=== PATIENT | female | born 1955 | race American Indian/Alaskan Native ===

== ENCOUNTER 2018-07-13 00:16 | Inpatient (IN) | payer MEDICARE ==
[2018-07-13] MEDS ORDERED: NITROSTAT SL PRN (01:07)
[2018-07-13 01:34] LABS: Basophils % (Auto) 0.6 % (0.0-1.8); Eosinophils # (Auto) 0.1 K/mm3 (0.0-0.4); Eosinophils % (Auto) 2.8 % (0.0-4.3); Hematocrit 38.3 % (30.3-42.9); Lymphocytes # (Auto) 1.1 K/mm3 (1.2-5.4); Lymphocytes % (Auto) 22.8 % (13.4-35.0); Mean Corpuscular HGB Conc 31 % (30-34); Mean Corpuscular Volume 80 fl (79-97); Monocytes # (Auto) 0.4 K/mm3 (0.0-0.8); Monocytes % (Auto) 9.3 % (0.0-7.3); Platelet Count 209 K/mm3 (140-440); Red Blood Count 4.76 M/mm3 (3.65-5.03); Red Cell Distribution Width 15.8 % (13.2-15.2)
[2018-07-13 01:47] LABS: BUN/Creatinine Ratio 24; Blood Urea Nitrogen 17 mg/dL (7-17); Calcium 9.1 mg/dL (8.4-10.2); Hemolysis Index 14
--- NOTE | 2018-07-13 03:23 | Emergency Department Report ---
ED Chest Pain HPI - General Chief Complaint: Chest Pain Stated Complaint: CHEST PAIN Time Seen by Provider: 07/13/18 00:56 Source: EMS Mode of arrival: Stretcher Limitations: No Limitations - History of Present Illness Initial Comments: Patient is a 62-year-old [place] female who is presenting with chest heaviness. Patient states that around 11:30 last night she started getting pressure-like heavy sensation in the chest. She states this was some mild shortness of breath present. Patient denies any nausea vomiting or diaphoresis. Patient called 911 and was transported here. Patient was given nitroglycerin prior to arrival which is starting to help with her chest discomfort. The patient has a past history of cholecystectomy and the patient states that she has never seen a skewer up and has never had a stress test. Severity scale (0 -10): 3 - Related Data Home Medications Medication Instructions Recorded Confirmed Last Taken Losartan [Cozaar] 25 mg PO QDAY 07/13/18 07/13/18 07/12/18 amLODIPine [Norvasc] 10 mg PO DAILY 07/13/18 07/13/18 07/12/18 metFORMIN [Glucophage] 500 mg PO BID 07/13/18 07/13/18 07/12/18 Allergies Allergy/AdvReac Type Severity Reaction Status Date / Time aspirin Allergy Angioedema Verified 07/13/18 00:58 codeine Allergy Unknown Verified 07/13/18 00:58 morphine Allergy Unknown Verified 07/13/18 00:58 Heart Score - HEART Score History: Moderately suspicious EKG: Non-specific Age: 45-65 Risk factors: 1-2 risk factors Troponin: < normal limit HEART Score: 4 ED Review of Systems ROS: Stated complaint: CHEST PAIN Other details as noted in HPI Comment: All other systems reviewed and negative ED Past Medical Hx - Past Medical History Previous Medical History?: Yes Hx Hypertension: Yes Hx Diabetes: Yes - Surgical History Past Surgical History?: Yes Hx Cholecystectomy: Yes Hx Appendectomy: Yes Additional Surgical History: ovary cyst removal - Social History Smoking Status: Never Smoker Substance Use Type: None - Medications Home Medications: Home Medications Medication Instructions Recorded Confirmed Last Taken Type Losartan [Cozaar] 25 mg PO QDAY 07/13/18 07/13/18 07/12/18 History amLODIPine [Norvasc] 10 mg PO DAILY 07/13/18 07/13/18 07/12/18 History metFORMIN [Glucophage] 500 mg PO BID 07/13/18 07/13/18 07/12/18 History ED Physical Exam - General Limitations: No Limitations General appearance: alert, in no apparent distress - Head Head exam: Present: atraumatic, normocephalic - Eye Eye exam: Present: normal appearance - ENT ENT exam: Present: mucous membranes moist - Neck Neck exam: Present: normal inspection - Respiratory Respiratory exam: Present: normal lung sounds bilaterally. Absent: respiratory distress, wheezes, rales, rhonchi - Cardiovascular Cardiovascular Exam: Present: regular rate, normal rhythm. Absent: systolic murmur, diastolic murmur, rubs, gallop - GI/Abdominal GI/Abdominal exam: Present: soft, normal bowel sounds. Absent: distended, tenderness, guarding - Extremities Exam Extremities exam: Present: normal inspection - Back Exam Back exam: Present: normal inspection - Neurological Exam Neurological exam: Present: alert, oriented X3 - Psychiatric Psychiatric exam: Present: normal affect, normal mood - Skin Skin exam: Present: warm, dry, intact, normal color. Absent: rash ED Course Vital Signs 07/13/18 07/13/18 07/13/18 00:49 00:52 01:00 Temperature 98.4 F Pulse Rate 70 67 Respiratory 16 13 Rate Blood Pressure 142/74 142/74 O2 Sat by Pulse 99 100 99 Oximetry 07/13/18 02:00 Temperature Pulse Rate 81 Respiratory 15 Rate Blood Pressure 161/88 O2 Sat by Pulse 98 Oximetry ED Medical Decision Making - Lab Data Result diagrams: 07/13/18 01:10 07/13/18 01:10 Lab Results 07/13/18 07/13/18 Range/Units 01:10 01:10 WBC 4.7 (4.5-11.0) K/mm3 RBC 4.76 (3.65-5.03) M/mm3 Hgb 12.0 (10.1-14.3) gm/dl Hct 38.3 (30.3-42.9) % MCV 80 (79-97) fl MCH 25 L (28-32) pg MCHC 31 (30-34) % RDW 15.8 H (13.2-15.2) % Plt Count 209 (140-440) K/mm3 Lymph % (Auto) 22.8 (13.4-35.0) % [place] % (Auto) 9.3 H (0.0-7.3) % Eos % (Auto) 2.8 (0.0-4.3) % Baso % (Auto) 0.6 (0.0-1.8) % Lymph # 1.1 L (1.2-5.4) K/mm3 [place] # 0.4 (0.0-0.8) K/mm3 Eos # 0.1 (0.0-0.4) K/mm3 Baso # 0.0 (0.0-0.1) K/mm3 Seg Neutrophils % 64.5 (40.0-70.0) % Seg Neutrophils # 3.0 (1.8-7.7) K/mm3 Sodium 140 (137-145) mmol/L Potassium 4.2 (3.6-5.0) mmol/L Chloride 102.9 (98-107) mmol/L Carbon Dioxide 24 (22-30) mmol/L Anion Gap 17 mmol/L BUN 17 (7-17) mg/dL Creatinine 0.7 (0.7-1.2) mg/dL Estimated GFR > 60 ml/min BUN/Creatinine Ratio 24 % Glucose 101 H (65-100) mg/dL Calcium 9.1 (8.4-10.2) mg/dL Troponin T < 0.010 (0.00-0.029) ng/mL - EKG Data -: EKG Interpreted by Al - EKG Data 07/13/18 03:22 EKG shows sinus rhythm rate of 79. There is a normal axis normal intervals. There is no ST segment elevation or depressions. Time of interpretation is 00 44 - Radiology Data Chest x-ray shows no acute process - Medical Decision Making Patient with elevated heart score and the patient will be admitted to the hosp italist service for cardiac workup Critical Care Time: Yes (30) Critical care attestation.: If time is entered above; I have spent that time in minutes in the direct care of this critically ill patient, excluding procedure time. ED Disposition Clinical Impression: Chest pain Qualifiers: Chest pain type: unspecified Qualified Code(s): R07.9 - Chest pain, unspecified Disposition: TO HOME OR SELFCARE Is pt being admited?: Yes Does the pt Need Aspirin: No Condition: Stable Instructions: Chest Pain (ED) Referrals: PRIMARY CARE, [Primary Care Provider] - 3-5 Days Time of Disposition: 03:23
--- NOTE | 2018-07-13 03:27 | XRay Report ---
FINAL REPORT EXAM: XR CHEST ROUTINE 2V HISTORY: chest pain TECHNIQUE: 2 views of the chest. PRIORS: None. FINDINGS: The cardiomediastinal silhouette appears normal. The lungs are clear. The bones and soft tissues are unremarkable. IMPRESSION: No evidence of acute cardiopulmonary disease
[2018-07-13] MEDS ORDERED: ZOFRAN IV PRN (03:50)
[2018-07-13] MEDS ORDERED: REGLAN IV PRN (03:50)
[2018-07-13] MEDS ORDERED: D50W (25GM) Syringe IV PRN ×2 (03:50→04:21)
[2018-07-13] MEDS ORDERED: TYLENOL PO PRN (03:50)
[2018-07-13] MEDS ORDERED: SODIUM CHLORIDE FLUSH SYRINGE 10 ML IV PRN (03:50)
[2018-07-13] MEDS ORDERED: NACL 0.45% 1000 ML 1,000 ML IV SCH (04:00)
[2018-07-13] MEDS ORDERED: APRESOLINE IV PRN (04:20)
--- NOTE | 2018-07-13 04:20 | History and Physical Report ---
History of Present Illness Date of examination: 07/13/18 History of present illness: 62 -year-old lady with a history of hypertension, diabetes, vertigo course emergency room with complaints of chest pain. She recently traveled from the [facility] on July 05. Her pain is in the epigastric area which she described as a dull sensation, constant, no radiation, intensity 5/10, cannot identify exacerbating or relieving factors. Admits to shortness of breath, no nausea vomiting, diaphoresis or palpitation Review of systems Constitutional: no weight loss, chills, fever Ears, eyes, nose, mouth and throat: no nasal congestion, no nasal discharge, no sinus pressure, no vision change, no red eye. Neck: No neck pain or rigidity. Cardiovascular: no palpitations, chest pain Gastrointestinal: no hematochezia, abdominal pain Genitourinary : no frequency , no hematuria Musculoskeletal: no joint swelling or muscle ache Integumentary: no rash, no pruritis Neurological: no parathesias, no focal weakness Endocrine: no cold or heat intolerance, no polyuria or polydipsia Hematologic/Lymphatic: no easy bruising, no easy bleeding, no gland swelling Allergic/Immunologic: no urticaria, no angioedema. PAST MEDICAL HISTORY: hypertension, diabetes, vertigo PAST SURGICAL HISTORY: Cholecystectomy, appendicectomy, cyst removed from the ovary SOCIAL HISTORY: Denies alcohol, drugs, tobacco FAMILY HISTORY: Hypertension Medications and Allergies Allergies Allergy/AdvReac Type Severity Reaction Status Date / Time aspirin Allergy Angioedema Verified 07/13/18 00:58 codeine Allergy Unknown Verified 07/13/18 00:58 morphine Allergy Unknown Verified 07/13/18 00:58 Home Medications Medication Instructions Recorded Confirmed Last Taken Type Losartan [Cozaar] 25 mg PO QDAY 07/13/18 07/13/18 07/12/18 History amLODIPine [Norvasc] 10 mg PO DAILY 07/13/18 07/13/18 07/12/18 History metFORMIN [Glucophage] 500 mg PO BID 07/13/18 07/13/18 07/12/18 History Active Meds: Active Medications Acetaminophen (Tylenol) 650 mg PO Q4H PRN PRN Reason: Pain MILD(1-3)/Fever >100.5/ANNA Dextrose (D50w (25gm) Syringe) 50 ml IV PRN PRN PRN Reason: Hypoglycemia Enoxaparin Sodium (Lovenox) 40 mg SUB-Q QDAY@1000 CARMENZA Sodium Chloride (Nacl 0.45% 1000 Ml) 1,000 mls @ 75 mls/hr IV DIRECT CARMENZA Metoclopramide HCl (Reglan) 10 mg IV Q6H PRN PRN Reason: Nausea And Vomiting Nitroglycerin (Nitrostat) 0.4 mg SL .Q5MIN PRN PRN Reason: Chest Pain Ondansetron HCl (Zofran) 4 mg IV Q8H PRN PRN Reason: Nausea And Vomiting Sodium Chloride (Sodium Chloride Flush Syringe 10 Ml) 10 ml IV BID CARMENZA Sodium Chloride (Sodium Chloride Flush Syringe 10 Ml) 10 ml IV PRN PRN PRN Reason: LINE FLUSH Exam - Physical Exam Narrative exam: PGeneral Apperance: The patient lying in bed, breathing comfortable HEENT: Normocephalic, atraumatic. Pupils equally round and reactive to light, EOMI, no sclericterus or JVD or thyromegaly or nodule. , no carotid bruit, mucous membranes moist, no exudate or erythema Heart: S1-S2, regular is rhythm Lungs: Clear to auscultation bilaterally, breathing comfortable Abdomen: Positive bowel sounds, soft, nontender, nondistended, no organomegaly Extremities: No edema cyanosis clubbing Skin: sacral and lower extremity ulcers, no rash, nodule, warm and dry Neuro: cranial nerves 2-12 intact, speech is fluent, motor/sensory intact - Constitutional Vitals: Temp Pulse Resp BP Pulse Ox 98.4 F 81 15 161/88 98 07/13/18 00:52 07/13/18 02:00 07/13/18 02:00 07/13/18 02:00 07/13/18 02:00 Results - Labs CBC & Chem 7: 07/13/18 01:10 07/13/18 01:10 Labs: Abnormal lab results 07/13/18 07/13/18 Range/Units 01:10 01:10 MCH 25 L (28-32) pg RDW 15.8 H (13.2-15.2) % [place] % (Auto) 9.3 H (0.0-7.3) % Lymph # 1.1 L (1.2-5.4) K/mm3 Glucose 101 H (65-100) mg/dL - Imaging and Cardiology EKG: report reviewed Chest x-ray: report reviewed Assessment and Plan Assessment Chest pain, rule out pulmonary emboli, ACS Hypertension Diabetes Plan Admit to medicine Check cardiac enzymes, d-dimer, stress test Check fingersticks and initiate insulin sliding-scale IV morphine, aspirin, DVT prophylaxi D-dimer positive, obtain CT chest, Please follow results
[2018-07-13 04:40] LABS: Creatine Kinase MB 1.7 ng/mL (0.0-4.0)
--- NOTE | 2018-07-13 07:14 | Cat Scan Report ---
FINAL REPORT EXAM: CT ANGIO CHEST HISTORY: eval for PE TECHNIQUE: CT imaging obtained through the chest in pulmonary angiographic phase following intraveno us administration of contrast. Transaxial, Coronal and sagittal reformats with maximal intensity proj ections are provided. PRIORS: Chest radiographs of the same date FINDINGS: Normal caliber main pulmonary artery. Well opacified pulmonary arterial tree. No pulmonary embolism. No pericardial effusion. Coronary artery calcifications. Thoracic aorta is normal in course and caliber. No periaortic fluid or stranding. No pneumothorax, effusion or focal airspace disease. Posterior medial right lower lung atelectasis ov erlies prominent endplate osteophytes. A subpleural left lower lung solid-appearing nodule measures u p to 5 millimeters on axial series 2, image 47. The central airways are patent. No bronchiectasis. Imaged portion of the upper abdomen is unremarkable. The superficial soft tissues are unremarkable. No acute bony abnormality or worrisome osseous lesions identified. IMPRESSION: No pulmonary embolism or other acute finding. Left lower lung solid-appearing 5 millimeter subpleural nodule warrants additional CT chest evaluatio n in 1 year. Coronary artery calcifications.
[2018-07-13 08:04] LABS: Creatine Kinase MB 1.3 ng/mL (0.0-4.0)
[2018-07-13] MEDS: HumaLOG SUB-Q SCH ×2 (09:55→13:51)
[2018-07-13] MEDS ORDERED: SODIUM CHLORIDE FLUSH SYRINGE 10 ML IV SCH (10:00)
[2018-07-13] MEDS ORDERED: LOVENOX SUB-Q SCH ×2 (10:00)
--- NOTE | 2018-07-13 11:18 | Discharge Summary ---
Providers - Providers Date of Admission: 07/13/18 04:35 Date of discharge: 07/13/18 Attending physician: SUSAN HERRERA Primary care physician: CLOTH EXAMINER Hospitalization Reason for admission: cp Condition: Stable Hospital course: 62 -year-old lady with a history of hypertension, diabetes, vertigo course emergency room with complaints of chest pain. She recently traveled from the [facility] on July 05. Her pain is in the epigastric area which she described as a dull sensation, constant, no radiation, intensity 5/10, cannot identify exacerbating or relieving factors. The patient was admitted with diagnosis of chest pain. Patient underwent CT of the chest that ruled out pulmonary emboli. Cardiac isoenzymes were found to be negative. EKG revealed normal sinus rhythm with no ST segment elevation or depressions. Patient is to undergo stress thallium evaluation and if found negative, she will discharge home. Disposition: TO HOME OR SELFCARE Time spent for discharge: 33 - Discharge Diagnoses (1) GERD (gastroesophageal reflux disease) Status: Acute (2) Chest pain Status: Acute Qualifiers: Chest pain type: unspecified Qualified Code(s): R07.9 - Chest pain, unspecified Core Measure Documentation - Palliative Care Palliative Care/ Comfort Measures: Not Applicable - Core Measures Any of the following diagnoses?: none Exam - Constitutional Vitals: Temp Pulse Resp BP Pulse Ox 98.4 F 88 20 138/84 95 07/13/18 00:52 07/13/18 07:32 07/13/18 07:32 07/13/18 07:32 07/13/18 07:32 General appearance: Present: no acute distress, well-nourished - EENT Eyes: Present: PERRL ENT: hearing intact, clear oral mucosa - Neck Neck: Present: supple, normal ROM - Respiratory Respiratory effort: normal Respiratory: bilateral: CTA - Cardiovascular Heart Sounds: Present: S1 & S2. Absent: rub, click - Extremities Extremities: pulses symmetrical, No edema Peripheral Pulses: within normal limits - Abdominal General gastrointestinal: Present: soft, non-tender, non-distended, normal bowel sounds Female genitourinary: Present: normal - Integumentary Integumentary: Present: clear, warm, dry - Musculoskeletal Musculoskeletal: gait normal, strength equal bilaterally - Psychiatric Psychiatric: appropriate mood/affect, intact judgment & insight - Neurologic Neurologic: CNII-XII intact, moves all extremities Plan Activity: no restrictions Weight Bearing Status: Full Weight Bearing Diet: regular Follow up with: PRIMARY CARE, [Primary Care Provider] - 3-5 Days Prescriptions: amLODIPine [Norvasc] 10 mg PO DAILY #30 tablet Losartan [Cozaar] 25 mg PO QDAY #30 tablet metFORMIN [Glucophage] 500 mg PO BID #60 tablet
[2018-07-13 12:12] VITALS: BP 138/63
[2018-07-13 13:53] LABS: Creatine Kinase MB < 1.0 ng/mL (0.0-4.0)
[2018-07-13] MEDS ORDERED: PNEUMOVAX 23 IM ONE (14:00)
[2018-07-13] MEDS ORDERED: AFLURIA QUAD 2018-2019 SYRINGE IM ONE (14:00)
--- NOTE | 2018-07-18 12:33 | Query- Chest Pain ---
[facility]___Braydon Date:____07/18/18 Radon Inspector/CDS:___charlie/luis felipe Phone#: [phone] Exercise your independent professional judgment when responding to query. Questions asked do not imply a particular answer is desired or expected. We greatly appreciate your clarification on this issue. Clinical Documentation States: 62 -year-old lady with a history of hypertension, diabetes, vertigo course emergency room with complaints of chest pain. Discharge Diagnoses (1) GERD (gastroesophageal reflux disease) (2) Chest pain Clinical Findings Show: EKG revealed normal sinus rhythm with no ST segment elevation or depressions Patient underwent CT of the chest that ruled out pulmonary emboli. Cardiac isoenzymes were found to be negative Please document the etiology of Chest Pain: [ ] Myocardial Infarction [ ] Pneumonia [ ] Mediastinitis [ ] Costochondritis [ ] Pulmonary Embolism [ ] Coronary Artery Disease [x ] GERD [ ] Other: [ ] Comment/Explanation: Present on Admission: [ x] Yes (Y) [ ] Clinically undeterminable (W) [ ] No(N) Please document response in your Progress Notes and/or Discharge Summary and indicate if the condition was present on admission. KATHY
== END 2018-07-13 15:06 | disposition home or self-care (01) | DRG 392 ==
LOC: ED 00:16 → 4A 04:35
PROVIDERS: ADMIT Internal Medicine; ATTEND Hospitalist
PROC: 3E0234Z Introduction of Serum, Toxoid and Vaccine into Muscle, Percutaneous Approach (ICD-10-PCS; principal; 2018-07-13)
DX: K21.9 Gastro-esophageal reflux disease without esophagitis (principal); I10 Essential (primary) hypertension; E11.9 Type 2 diabetes mellitus without complications; Z90.49 Acquired absence of other specified parts of digestive tract; Z82.49 Family history of ischemic heart disease and other diseases of the circulatory system; Z88.6 Allergy status to analgesic agent; Z88.5 Allergy status to narcotic agent; Z79.899 Other long term (current) drug therapy; Z23 Encounter for immunization
CPT/HCPCS: 36415; 71046; 71275; 80048; 82550; 82553; 82962; 84484; 85025; 85379; 90686; 90732; 93005; 93010; 93017; 96372; G0378; J1650; Q9967

== ENCOUNTER 2020-05-27 12:02 | Outpatient (CLI) | payer MEDICARE | END 2020-05-27 12:03 | disposition home or self-care (01) | LOC: LAB 12:02 | PROVIDERS: ATTEND Specialist | DX: F07.81 Postconcussional syndrome (principal) | CPT/HCPCS: 36415; 85652; 86140 ==